=== PATIENT | male | born 1965 | race Caucasian/White ===

== ENCOUNTER 2021-09-04 00:13 | Emergency (ER) | payer OTHER ==
[~2021-09-04] VITALS: Ht 182.9 cm; Wt 77.3 kg
[2021-09-04] MEDS ORDERED: LORazepam 2 MG/ML VIAL IM ONE (01:45)
[2021-09-04] MEDS ORDERED: HALOPERIDOL LACTATE 5 MG/ML VIAL IM ONE (01:45)
[2021-09-04] MEDS ORDERED: DiphenhydrAMINE HCL 50 MG/ML VIAL IM ONE (01:45)
[2021-09-04 05:00] VITALS: BP 128/66
== END 2021-09-04 10:35 | disposition home or self-care (01) ==
LOC: EMS 00:14
DX: F10.229 Alcohol dependence with intoxication, unspecified (principal); F15.10 Other stimulant abuse, uncomplicated; I11.0 Hypertensive heart disease with heart failure; I50.9 Heart failure, unspecified; F32.A Depression, unspecified; E78.00 Pure hypercholesterolemia, unspecified; E78.5 Hyperlipidemia, unspecified; F12.90 Cannabis use, unspecified, uncomplicated; Z86.69 Personal history of other diseases of the nervous system and sense organs; Z87.39 Personal history of other diseases of the musculoskeletal system and connective tissue
CPT/HCPCS: 99284; 96372; J1200; J1630; J2060

== ENCOUNTER 2021-11-05 16:54 | Emergency (ER) | payer OTHER ==
[~2021-11-05] VITALS: Ht 180.3 cm; Wt 77.3 kg
[2021-11-05] MEDS ORDERED: DEXAMETHASONE SOD PHOS 4 MG/ML 5 ML VIAL IM ONE (18:30)
[2021-11-05] MEDS ORDERED: GABAPENTIN 300 MG CAPSULE PO ONE (18:30)
[2021-11-05] MEDS ORDERED: ACYCLOVIR 200 MG CAPSULE PO ONE (18:30)
[2021-11-05] MEDS ORDERED: HYDR-4527 PO (19:31)
[2021-11-05] MEDS ORDERED: METH4TAB3 PO (19:31)
[2021-11-05] MEDS ORDERED: ACYC-138 PO (19:31)
[2021-11-05 20:00] VITALS: BP 149/74
== END 2021-11-05 20:01 | disposition home or self-care (01) ==
LOC: EMS 16:54
DX: B00.1 Herpesviral vesicular dermatitis (principal); F10.20 Alcohol dependence, uncomplicated; I11.0 Hypertensive heart disease with heart failure; I50.9 Heart failure, unspecified; F32.A Depression, unspecified; E78.00 Pure hypercholesterolemia, unspecified; F12.90 Cannabis use, unspecified, uncomplicated; Z86.69 Personal history of other diseases of the nervous system and sense organs; Z87.39 Personal history of other diseases of the musculoskeletal system and connective tissue
CPT/HCPCS: 99283; 36415; 96372; J1100